=== PATIENT | female | born 1935 | race American Indian/Alaskan Native ===

== ENCOUNTER 2017-11-19 16:23 | Emergency (ER) | payer MEDICARE ==
[2017-11-19 16:37] VITALS: BMI 26.6
--- NOTE | 2017-11-19 16:41 | ED PDOC ---
Arrival/HPI - General Time Seen by Provider: 11/19/17 16:29 Historian: Patient, Spouse, Family, EMS - History of Present Illness Narrative History of Present Illness (Text): 11/19/17 16:29 81 y/o female, pmh including htn/arthiritis/cataract, nkda, limited HPI as the patient is not sure about her history and stated that she only takes htn medication daily, nkda, last tetanus doesn't remember, GCS 15, FS 125, biba c/o fall on the left side of the face x 1 hour. Pt. stated that she was trying to get out of the car with the help of her which she fall on to the sidewalk and left sided facial region struck against the side walk, sustained laceration on the left orbital region and swelling along with vision lost on the left eye after the fall episode earlier. Pt. stated that she can not see from the left eye and stated that she can see from the left eye prior to the fall. Pt. has no extremity pain, no nausea or vomiting, no fever or chills, no night sweat, no neck or back pain, no palpitation, no numbness or tingling, no other medical or psychological complaints. Past Medical History - Provider Review Nursing Documentation Reviewed: Yes Family/Social History - Physician Review Nursing Documentation Reviewed: Yes Family/Social History: Unknown Family HX Allergies/Home Meds Allergies/Adverse Reactions: Allergies No Known Allergies Allergy (Verified 11/19/17 16:35) Home Medications: Home Meds Medication Instructions Recorded Confirmed Unobtainable 11/19/17 11/19/17 Review of Systems - Review of Systems Constitutional: absent: Fatigue, Fevers Eyes: Vision Changes ENT: absent: Hearing Changes Respiratory: absent: SOB, Cough Cardiovascular: absent: Chest Pain Gastrointestinal: absent: Abdominal Pain, Nausea, Vomiting Skin: Laceration. absent: Rash, Pruritis Neurological: absent: Headache, Dizziness, Focal Weakness, Speech Changes, Facial Droop, Seizure Psychiatric: absent: Anxiety, Depression, Suicidal Ideation Physical Exam Vital Signs Reviewed: Yes Vital Signs Temp Pulse Resp BP Pulse Ox 11/19/17 19:10 97.8 F 57 L 20 192/99 H 98 11/19/17 18:59 56 L 192/99 H 11/19/17 18:42 97.8 F 54 L 20 223/84 H 96 11/19/17 17:07 99.2 F 60 24 249/96 H 98 11/19/17 16:35 97.7 F 69 20 246/110 H 20 L Temperature: Afebrile Blood Pressure: Hypertensive Pulse: Regular Respiratory Rate: Normal Appearance: Positive for: Well-Appearing, Non-Toxic, Comfortable Pain Distress: Mild Mental Status: Positive for: Alert and Oriented X 3 - Systems Exam Head: Present: Atraumatic, Normocephalic, Other (Facial: visible approx. 1cm superficial laceration noted on the left lateral orbital region with oozing blood, +periorbital contussion with swelling to lt. facial cheek region. ). No : Tenderness, Contusion, Swelling, Ecchymosis, Abrasion, Laceration Pupils: Present: PERRL Extroacular Muscles: Present: EOMI, Other (Eyes: rt. eye visoin 20/100 w/o correction, lt. eye visible cataract noted with blood covering the lens with periorbital swelling including upper and lower eyelids, swelling causing the difficulty and entractment of the left eye, left eye cornea with no up take, lt. eye subjectively stated that she can not see from the left eye with unable to see lights or fingers. There is blood noted on the left anterior lens. ) Ears: Present: NORMAL TM, Normal Canal. No: Erythema Mouth: Present: Moist Mucous Membranes Pharnyx: Present: Normal. No: ERYTHEMA, EXUDATE, TONSILS ENLARGED Nose (External): Present: Atraumatic. No: Abrasion, Contusion, Laceration, Lesions Nose (Internal): Present: Normal Inspection, No Active Bleeding. No: Rhinorrhea , Septal Hematoma, Epistaxis Neck: Present: Normal Range of Motion, Trachea Midline. No: Meningeal Signs, MIDLINE TENDERNESS, Paraspinal Tenderness, Lymphadenopathy Respiratory/Chest: Present: Clear to Auscultation, Good Air Exchange. No: Respiratory Distress, Accessory Muscle Use Cardiovascular: Present: Regular Rate and Rhythm, Normal S1, S2. No: Murmurs Abdomen: No: Tenderness, Distention, Peritoneal Signs, Rebound, Guarding Back: Present: Normal Inspection. No: CVA Tenderness, Midline Tenderness, Paraspinal Tenderness Upper Extremity: Present: Normal Inspection, Normal ROM, NORMAL PULSES, Neurovascularly Intact, Capillary Refill < 2s. No: Cyanosis, Edema, Tenderness , Swelling, Erythema, Deformity Lower Extremity: Present: Normal Inspection, NORMAL PULSES, Normal ROM, Neurovascularly Intact, Capillary Refill < 2 s. No: Edema, Tenderness, Swelling , Deformity Neurological: Present: GCS=15, CN II-XII Intact, Speech Normal, Motor Func Grossly Intact, Memory Normal, Other (no drift, no focal neurological deficits. ) Skin: Present: Warm, Dry, Normal Color. No: Rashes Psychiatric: Present: Alert, Oriented x 3, Normal Insight, Normal Concentration Medical Decision Making ED Course and Treatment: 11/19/17 17:07 Differential: Retinal detachment vs. Intracranial hemorrage vs. fracture vs. subluxation. -labs/pt/ptt -CT head/facial/orbit/cervical -CXR and pelvis/hip fall protocol -Cervical collar -EKG -IVF/tdap, ice pack -Observe and reassess -Case discussed with Dr. Daley, he agreed on the labs/radiology order. 11/19/17 18:11 -Bedside sonogram performed: lt. eye globe shape has abnormal flattened shaped, limited evaluation of the complete left eye. -CT head: No acute intracranial abnormalities. No significant findings to account for the clinical presentation. Facial trauma/ contusion including the left globe. -CT Cervical: No acute findings related to/accounting for the clinical presentation. -CT facial: Large left periorbital soft tissue swelling and preseptal hematoma. Findings suggestive of acute hemorrhage in the left globe. The possibility of left globe rupture or laceration should be considered. There is a small left retrobulbar hematoma. Fat stranding in the left retrobulbar region. -Chest xray: No active disease. -Pelvis/hip xray: No definite evidence of acute displaced fracture. Moderate to severe right and mild left osteoarthritis. -Opthalmology oncall Dr. Chirinos paged immediately, Dr. Daley is examining the patient too. 11/19/17 18:24 -I spoke to Dr. Chirinos, discussed about the case/CT result and vision change, he suggest to transfer to trauma center such as [facility] or Trauma facility as there is concern for globe rupture. -BP elevated, labetolol IV ordered -Intraocular pressure didn't perform due to the left eye injury/globe injury. -Planning transfer now 11/19/17 18:44 -Dr. Daley spoke to [facility] surgeon Dr. Nielson, discussed about the case and agreed to accept the transfer -I spoke to DR. Marte, ER Physician from [facility], discussed about the case/labs/ radiology result and concerning for ruptured globe, will accept the case and agreed on the transfer. 11/19/17 18:57 -I spoke to Dr. Ferrari, [facility] Opthalmologist, discussed about the case/CT result and concerning about ruptured globe, will see the patient and recommend continue ice (pt. has ice pack on since the arrival) and call her when the patient left the [place] ER. -I spoke to Dr. Marte, [facility] ER Attending, discussed about the opthalmologist Dr. Ferrari, will call Dr. Ferrari once the patien arrived. 11/19/17 19:01 -Labs are non-significant except hgb 11 PROCEDURE: LACERATION REPAIR Performed by the emergency provider Location: Lt. facial region PROCEDURE: LACERATION REPAIR Performed by the emergency provider Location: lt. facial region Length: 1cm Description: {"clean wound edges","no foreign bodies"} Distal CMS: Normal. No deficits. Neurovascularly intact. Anesthesia: Lidocaine 1% 0.5cc Preparation: The wound was cleaned with NS 1000cc and [place]. The area was prepped and draped in the usual sterile fashion. Exploration: The wound was explored and no foreign bodies were found. Procedure: The wound was closed with 6-0 nylon. There was {good / appropriate / adequate / loose} approximation. In total, 5 sutures were used. Post-Procedure: Good closure and hemostasis. The patient tolerated the procedure well and there were no complications. CSM remains intact. Post procedure dressing applied. 11/19/17 19:24 -Pt. just left the facility. I spoke to Dr. Ferrari, stated that the patient is gone from the facility and she will go to [facility] ER now. - Critical Care Critical Care Minutes: 45 minutes Critical Care Time: Unstable Narrative Critical Care (Text): 11/19/17 19:24 Trauma, globe injury, eye injury, Trauma/opthalmologist consult, transfer - Lab Interpretations Lab Results: 11/19/17 17:00 11/19/17 17:00 Lab Results 11/19/17 17:00: WBC 10.7, RBC 4.23, Hgb 11.3 L, Hct 35.2 L, MCV 83.2, MCH 26.7, MCHC 32.1, RDW 16.8 H, Plt Count 268, MPV 10.3, Gran % 69.2 H, Lymph % (Auto) 21.6 L, [place] % (Auto) 6.5 H, Eos % (Auto) 2.4, Baso % (Auto) 0.3, Gran # 7.42 H , Lymph # (Auto) 2.3, [place] # (Auto) 0.7 H, Eos # (Auto) 0.3, Baso # (Auto) 0.03 11/19/17 17:00: Sodium 146, Potassium 3.8, Chloride 108 H, Carbon Dioxide 27, Anion Gap 15, BUN 21, Creatinine 0.8, Est GFR ( Amer) > 60, Est GFR (Non- Af Amer) > 60, Random Glucose 130 H, Calcium 9.4, Total Bilirubin 0.5, AST 25, ALT 22, Alkaline Phosphatase 101, Total Protein 8.6 H, Albumin 4.1, Globulin 4.5 , Albumin/Globulin Ratio 0.9 L 11/19/17 17:00: PT 12.2, INR 1.07, APTT 32.1 - RAD Interpretation Radiology Orders: 11/19/17 16:41 CERVICAL SPINE W/O CONTRAST [CT] Stat MAXILLOFACIAL W/O CONTRAST [CT] Stat CHEST ONE VIEW [RAD] Stat HIP MIN 2V W/ PELVIS KYLE [RAD] Stat 11/19/17 17:19 HEAD W/O CONTRAST [CT] Stat CT Head: HEMORRHAGE: No intracranial hemorrhage. BRAIN: No mass effect or edema. Cortical atrophy, periventricular small vessel disease. VENTRICLES: Unremarkable. No hydrocephalus. CALVARIUM: Unremarkable. PARANASAL SINUSES: Unremarkable as visualized. No significant inflammatory changes. MASTOID AIR CELLS: Unremarkable as visualized. No inflammatory changes. OTHER FINDINGS: Left periorbital soft tissue injury and trauma to the globe which now contains hemorrhage. IMPRESSION: No acute intracranial abnormalities. No significant findings to account for the clinical presentation. Facial trauma/ contusion including the left globe. CT Facial: NASAL BONES: Unremarkable. ORBITS: There is large preseptal hematoma in the left orbit. There is high attenuation fluid in the globe suggestive of hemorrhage in the left globe. There is also retrobulbar lower small hematoma seen posterior to the left globe. There is fat stranding seen at the left mid and posterior orbit. No evidence of acute fracture. The right globe is grossly unremarkable. PARANASAL SINUSES/ MASTOIDS: Clear. MAXILLA: Unremarkable. MANDIBLE/ TEMPOROMANDIBULAR JOINTS: Unremarkable. SKULL BASE: Unremarkable. TEMPORAL BONES: Middle ears and mastoid grossly unremarkable. OTHER FINDINGS: None. IMPRESSION: Large left periorbital soft tissue swelling and preseptal hematoma . Findings suggestive of acute hemorrhage in the left globe. The possibility of left globe rupture or laceration should be considered. There is a small left retrobulbar hematoma. Fat stranding in the left retrobulbar region. CT Cervical: FINDINGS: VERTEBRAE: No fracture. Normal alignment. No destructive bony lesion. DISCS/SPINAL CANAL/NEURAL FORAMINA: No significant central canal or neural foraminal stenosis. Multilevel degenerative changes. Uncovertebral hypertrophy at multiple levels. PARASPINAL SOFT TISSUES: Unremarkable. OTHER FINDINGS: None. IMPRESSION: No acute findings related to/accounting for the clinical presentation. Chest xray: HISTORY: fall, trauma COMPARISON: None available. FINDINGS: LUNGS: Clear. PLEURA: No pneumothorax or pleural fluid seen. CARDIOVASCULAR: No radiographic findings to suggest acute or significant cardiovascular disease. OSSEOUS STRUCTURES: No significant abnormalities. VISUALIZED UPPER ABDOMEN: Normal. OTHER FINDINGS: None. IMPRESSION: No active disease. Hip and Pelvis xrays: HISTORY: fall COMPARISON: None. FINDINGS: BONES: Pelvis: Unremarkable. Right hip:Unremarkable. Left hip:Unremarkable. JOINTS: Right hip: Moderate to severe right hip osteoarthritis. Left hip: Mild osteoarthritis. Sacroiliac Joints: Unremarkable. Pubic symphysis: Unremarkable. SOFT TISSUES: Normal. OTHER FINDINGS: None. IMPRESSION: No definite evidence of acute displaced fracture. Moderate to severe right and mild left osteoarthritis. Cracker Off: Radiologist - Medication Orders Current Medication Orders: Sodium Chloride (Sodium Chloride 0.9%) 1,000 mls @ 100 mls/hr IV .Q10H SIMON Last Admin: 11/19/17 17:53 Dose: 100 mls/hr eMAR Start Stop Document 11/19/17 17:53 OCS (Rec: 11/19/17 17:54 OCS [email or web address]) Intravenous Solution Start Date 11/19/17 Start Time 17:53 Discontinued Medications Labetalol HCl (Trandate) 20 mg IV STAT STA Stop: 11/19/17 18:27 Last Admin: 11/19/17 18:59 Dose: 20 mg eMAR Start Stop Document 11/19/17 18:59 OCS (Rec: 11/19/17 19:02 OCS [email or web address]) Intravenous Solution Start Date 11/19/17 Start Time 19:02 End Date 11/19/17 End time 19:04 Total Infusion Time 2 MAR Pulse and Blood Pressure Document 11/19/17 18:59 OCS (Rec: 11/19/17 19:02 OCS [email or web address]) Pulse Pulse Rate (60-90) 56 Blood Pressure Blood Pressure (100/60-150/90) 192/99 Tetanus/Reduced Diphtheria/Acell Pertussis (Boostrix Vaccine Inj) 0.5 ml IM .ONCE ONE Stop: 11/19/17 17:08 Last Admin: 11/19/17 17:54 Dose: 0.5 ml Immunization Registry Document 11/19/17 17:54 OCS (Rec: 11/19/17 17:54 OCS [email or web address] Immunization Registry Consent Date 11/19/17 - PA / GARMENT PRESSER / Resident Statement / has reviewed & agrees with the documentation as recorded. / has examined the patient and agrees with the treatment plan. Disposition/Present on Arrival - Present on Arrival Any Indicators Present on Arrival: No History of DVT/PE: No History of Uncontrolled Diabetes: No Urinary Catheter: No History of Decub. Ulcer: No - Disposition Have Diagnosis and Disposition been Completed?: Yes Diagnosis: Fall, Trauma, Facial laceration, Contusion, Vision loss of left eye, Injury of globe of left eye Disposition: Transfer [facility] Disposition Time: 19:23 Patient Plan: Transfer To ([facility] ER Trauma [place]) Patient Problems: Current Active Problems Problem Status Onset Contusion Acute Facial laceration Acute Fall Acute Injury of globe of left eye Acute Trauma Acute Vision loss of left eye Acute Condition: GUARDED Referrals: Mino Rm MD [Primary Care Provider] - Follow up with primary
[2017-11-19] MEDS ORDERED: TDAP Vaccine 0.5 mL Syr IM ONE (17:07)
[2017-11-19 17:18] LABS: BASO # 0.03 K/mm3 (0.0-2.0); BASO % 0.3 % (0.0-3.0); EOS # 0.3 (0.0-0.7); EOS % 2.4 % (1.5-5.0); GRAN # 7.42 (1.4-6.5); GRAN % 69.2 % (50.0-68.0); HEMOGLOBIN 11.3 g/dL (12.0-16.0); LYMPH # 2.3 (1.2-3.4); LYMPH % 21.6 % (22.0-35.0); MEAN CELL VOLUME 83.2 fl (80.0-105.0); MEAN CORPUSCULAR HEMOGLOBIN 26.7 pg (25.0-35.0); MEAN CORPUSCULAR HGB CONC 32.1 g/dl (31.0-37.0); MEAN PLATELET VOLUME 10.3 fl (7.0-11.0); MONO # 0.7 (0.1-0.6); MONO % 6.5 % (1.0-6.0); RBC 4.23 10^6/uL (3.5-6.1); RED CELL DISTRIBUTION WIDTH 16.8 % (11.5-14.5); WHITE BLOOD COUNT 10.7 10^3/ul (4.5-11.0)
[2017-11-19 17:20] LABS: INR 1.07; PROTHROMBIN TIME 12.2 SECONDS (9.4-12.5)
[2017-11-19 17:22] LABS: PARTIAL THROMBOPLASTIN TIME 32.1 Seconds (25.1-36.5)
[2017-11-19 17:29] LABS: ALB/GLOB RATIO 0.9 (1.1-1.8); ALBUMIN 4.1 g/dL (3.0-4.8); ALT/SGPT 22 U/L (7-56); AST/SGOT 25 U/L (14-36); BLOOD UREA NITROGEN 21 mg/dL (7-21); CALCIUM 9.4 mg/dL (8.4-10.5); GFR AFRICAN-AMERICAN > 60; GFR NON-AFRICAN AMERICAN > 60
[2017-11-19] MEDS ORDERED: Sodium Chloride 0.9% 1,000 ML IV SCH (17:30)
--- NOTE | 2017-11-19 17:44 | CT ---
Date of service: 11/19/2017 PROCEDURE: CT Cervical Spine without contrast HISTORY: fall COMPARISON: None available. TECHNIQUE: Axial computed tomography images were obtained of the cervical spine without the use of intravenous contrast. Coronal and sagittal reformatted images were created and reviewed. Radiation dose: Total exam DLP = 421.53 mGy-cm. This CT exam was performed using one or more of the following dose reduction techniques: Automated exposure control, adjustment of the mA and/or kV according to patient size, and/or use of iterative reconstruction technique. FINDINGS: VERTEBRAE: No fracture. Normal alignment. No destructive bony lesion. DISCS/SPINAL CANAL/NEURAL FORAMINA: No significant central canal or neural foraminal stenosis. Multilevel degenerative changes. Uncovertebral hypertrophy at multiple levels. PARASPINAL SOFT TISSUES: Unremarkable. OTHER FINDINGS: None. IMPRESSION: No acute findings related to/accounting for the clinical presentation.
--- NOTE | 2017-11-19 17:56 | CT ---
Date of service: 11/19/2017 PROCEDURE: CT HEAD WITHOUT CONTRAST. HISTORY: fall COMPARISON: None available. TECHNIQUE: Axial computed tomography images were obtained through the head/brain without intravenous contrast. Radiation dose: Total exam DLP = 849.12 mGy-cm. This CT exam was performed using one or more of the following dose reduction techniques: Automated exposure control, adjustment of the mA and/or kV according to patient size, and/or use of iterative reconstruction technique. FINDINGS: HEMORRHAGE: No intracranial hemorrhage. BRAIN: No mass effect or edema. Cortical atrophy, periventricular small vessel disease. VENTRICLES: Unremarkable. No hydrocephalus. CALVARIUM: Unremarkable. PARANASAL SINUSES: Unremarkable as visualized. No significant inflammatory changes. MASTOID AIR CELLS: Unremarkable as visualized. No inflammatory changes. OTHER FINDINGS: Left periorbital soft tissue injury and trauma to the globe which now contains hemorrhage. IMPRESSION: No acute intracranial abnormalities. No significant findings to account for the clinical presentation. Facial trauma/ contusion including the left globe.
--- NOTE | 2017-11-19 18:00 | CT ---
Date of service: 11/19/2017 PROCEDURE: CT MAXILLOFACIAL BONES WITHOUT CONTRAST HISTORY: lt. orbital injury and contussion, vision change COMPARISON: None available. TECHNIQUE: Contiguous axial CT images of the maxillofacial bones were obtained. Coronal and sagittal reformats were generated. Radiation dose: Total exam DLP = 812.21 mGy-cm. This CT exam was performed using one or more of the following dose reduction techniques: Automated exposure control, adjustment of the mA and/or kV according to patient size, and/or use of iterative reconstruction technique. FINDINGS: NASAL BONES: Unremarkable. ORBITS: There is large preseptal hematoma in the left orbit. There is high attenuation fluid in the globe suggestive of hemorrhage in the left globe. There is also retrobulbar lower small hematoma seen posterior to the left globe. There is fat stranding seen at the left mid and posterior orbit. No evidence of acute fracture. The right globe is grossly unremarkable. PARANASAL SINUSES/ MASTOIDS: Clear. MAXILLA: Unremarkable. MANDIBLE/ TEMPOROMANDIBULAR JOINTS: Unremarkable. SKULL BASE: Unremarkable. TEMPORAL BONES: Middle ears and mastoid grossly unremarkable. OTHER FINDINGS: None. IMPRESSION: Large left periorbital soft tissue swelling and preseptal hematoma . Findings suggestive of acute hemorrhage in the left globe. The possibility of left globe rupture or laceration should be considered. There is a small left retrobulbar hematoma. Fat stranding in the left retrobulbar region.
--- NOTE | 2017-11-19 18:02 | RAD ---
PROCEDURE: Radiographs of the pelvis and bilateral hips HISTORY: fall COMPARISON: None. FINDINGS: BONES: Pelvis: Unremarkable. Right hip:Unremarkable. Left hip:Unremarkable. JOINTS: Right hip: Moderate to severe right hip osteoarthritis. Left hip: Mild osteoarthritis. Sacroiliac Joints: Unremarkable. Pubic symphysis: Unremarkable. SOFT TISSUES: Normal. OTHER FINDINGS: None. IMPRESSION: No definite evidence of acute displaced fracture. Moderate to severe right and mild left osteoarthritis.
--- NOTE | 2017-11-19 18:15 | RAD ---
Date of service: 11/19/2017 PROCEDURE: CHEST RADIOGRAPH, 1 VIEW HISTORY: fall, trauma COMPARISON: None available. FINDINGS: LUNGS: Clear. PLEURA: No pneumothorax or pleural fluid seen. CARDIOVASCULAR: No radiographic findings to suggest acute or significant cardiovascular disease. OSSEOUS STRUCTURES: No significant abnormalities. VISUALIZED UPPER ABDOMEN: Normal. OTHER FINDINGS: None. IMPRESSION: No active disease.
[2017-11-19] MEDS ORDERED: Labetalol 5 mg/ml Inj 20ML IV STA (18:26)
[2017-11-19 18:43] VITALS: RESP 20; TEMP 97.8
[2017-11-19 19:03] VITALS: BP 192/99
[2017-11-19 19:11] VITALS: PULSE 57; O2SAT 98
== END 2017-11-19 19:37 | disposition short-term general hospital (02) ==
LOC: ED 16:23
DX: S01.81XA Laceration without foreign body of other part of head, initial encounter (principal); T14.8XXA Other injury of unspecified body region, initial encounter; S05.92XA Unspecified injury of left eye and orbit, initial encounter; W18.30XA Fall on same level, unspecified, initial encounter; Y92.480 Sidewalk as the place of occurrence of the external cause; H54.62 Unqualified visual loss, left eye, normal vision right eye; Z23 Encounter for immunization; I10 Essential (primary) hypertension
CPT/HCPCS: 12011; 70450; 70486; 71045; 72125; 73521; 80053; 85025; 85610; 85730; 90471; 90715; 99291; J7030